=== PATIENT | male | born 2000 | race Caucasian/White ===

== ENCOUNTER 2019-03-06 21:30 | Emergency (ER) | payer MEDICAID ==
[~2019-03-06] VITALS: Ht 170.2 cm; Wt 66.7 kg
[2019-03-06 21:39] VITALS: BP_SYST 108
[2019-03-07 02:50] VITALS: BP_SYST 108
== END 2019-03-07 02:50 | disposition left against medical advice (07) ==
LOC: SED 21:30
DX: S49.91XA Unspecified injury of right shoulder and upper arm, initial encounter (principal); S69.91XA Unspecified injury of right wrist, hand and finger(s), initial encounter; W19.XXXA Unspecified fall, initial encounter; Y93.89 Activity, other specified; Y92.89 Other specified places as the place of occurrence of the external cause; Y99.8 Other external cause status
CPT/HCPCS: 73030; 99281; 99283

== ENCOUNTER 2020-06-17 15:25 | Emergency (ER) | payer OTHER, MEDICAID ==
[~2020-06-17] VITALS: Ht 170.2 cm; Wt 63.5 kg
[2020-06-17 15:36] VITALS: BP_SYST 147
== END 2020-06-17 17:40 | disposition left against medical advice (07) ==
LOC: SED 15:25
DX: J34.89 Other specified disorders of nose and nasal sinuses (principal); Z53.21 Procedure and treatment not carried out due to patient leaving prior to being seen by health care provider

== ENCOUNTER 2022-11-14 10:47 | Emergency (ER) | payer MEDICAID, OTHER ==
[~2022-11-14] VITALS: Ht 172.7 cm; Wt 68.0 kg
[2022-11-14 10:50] VITALS: BP_SYST 117
[2022-11-14] MEDS ORDERED: NEO/3.5O OP (12:15)
[2022-11-14 12:27] VITALS: BP_SYST 117
== END 2022-11-14 12:25 | disposition home or self-care (01) ==
LOC: SED 10:47
DX: H00.014 Hordeolum externum left upper eyelid (principal); H57.89 Other specified disorders of eye and adnexa; Z79.899 Other long term (current) drug therapy
CPT/HCPCS: 99283